=== PATIENT | male | born 1980 | race Caucasian/White ===

== ENCOUNTER 2025-07-19 13:06 | Emergency (ER) | payer OTHER ==
[~2025-07-19] VITALS: Ht 180.3 cm; Wt 131.5 kg
[2025-07-19 13:09] VITALS: O2SAT 99
[2025-07-19 13:25] VITALS: BP 134/77; PULSE 103; RESP 18; TEMP 36.9; O2SAT 98
== END 2025-07-19 16:47 | disposition left against medical advice (07) ==
LOC: ER 13:06
DX: R10.13 Epigastric pain (principal); Z53.21 Procedure and treatment not carried out due to patient leaving prior to being seen by health care provider

== ENCOUNTER 2025-07-25 21:33 | Emergency (ER) | payer OTHER ==
[~2025-07-25] VITALS: Ht 180.3 cm; Wt 129.0 kg
[2025-07-25 21:48] VITALS: O2SAT 99
[2025-07-25 22:39] VITALS: BP 131/76; PULSE 95; RESP 13; TEMP 36.5; O2SAT 98
[2025-07-25] MEDS: ASPIRIN 325MG TABLET PO ONE (22:50)
== END 2025-07-25 23:32 | disposition left against medical advice (07) ==
LOC: ER 21:33
DX: R07.89 Other chest pain (principal)
CPT/HCPCS: 71045; 93005; 99283; Z7610; 36415; 80048; 80076; 84484; 99285; A4606